=== PATIENT | male | born 1995 | race Caucasian/White ===

== ENCOUNTER 2019-03-21 13:35 | Inpatient (IN) | payer OTHER ==
[~2019-03-21] VITALS: Ht 177.8 cm; Wt 99.2 kg
[2019-03-21 13:35] VITALS: BP 142/81
[~2019-03-21 13:35] MED LIST: IBUPROFEN 600600 M1 PO; MEDROLDOSEPACK PO
[2019-03-21 14:12] LABS: HEMATOCRIT 43.3 % (42.0-52.0); HEMOGLOBIN 15.1 gm/dL (14.0-18.0); MCH 27.6 pg (26.0-34.0); MCHC 34.9 g/dL (28.0-37.0); MCV 79.2 fL (80.0-100.0); MPV 7.8 fl. (7.2-11.1); NUCLEATED RBCS 0 /100WBC; PLATELET COUNT* 214 thou/uL (150-400); RBC 5.46 mil/uL (4.50-6.00); RDW-CV 12.5 % (10.5-14.5)
[2019-03-21 14:18] LABS: CALCIUM 9.7 mg/dL (8.5-10.1); CREATININE 1.3 mg/dL (0.6-1.3); POTASSIUM 3.6 mmol/L (3.5-5.1)
[2019-03-21 14:23] LABS: ALBUMIN 3.7 g/dL (3.4-5.0); TOTAL BILIRUBIN 3.9 mg/dL (<0.1-1.0); TOTAL PROTEIN 8.4 g/dL (6.4-8.2)
[2019-03-21 14:31] LABS: BE -0.9 mmol/L (-2 to +3); PCO2 29.8 mmHg (35.0-45.0); pH 7.474 (7.340-7.450)
[2019-03-21 14:37] LABS: PO2 55.8 mmHg (75.0-100.0)
[2019-03-21 14:54] LABS: ABSOLUTE MONOCYTES 0.2 thou/uL (0.0-1.2); ABSOLUTE NEUTROPHILS 15.8 thou/uL (1.6-8.1)
[2019-03-21 14:56] LABS: LARGE PLATELETS OCCASIONAL; PLATELET ESTIMATE ADEQUATE
[2019-03-21 15:35] LABS: INFLUENZA A ANTIGEN Negative (Negative)
[2019-03-21 15:36] LABS: INFLUENZA B ANTIGEN Negative (Negative)
[2019-03-21 16:45] VITALS: BP 149/87
[2019-03-21 18:49] VITALS: BP 139/74
[2019-03-21 20:00] VITALS: BP 136/77
[2019-03-22] VITALS: BP 137/81
[2019-03-22 03:56] VITALS: BP 160/97
[2019-03-22 04:26] LABS: HEMATOCRIT 41.8 % (42.0-52.0); HEMOGLOBIN 14.1 gm/dL (14.0-18.0); MCH 27.2 pg (26.0-34.0); MCHC 33.8 g/dL (28.0-37.0); MCV 80.5 fL (80.0-100.0); MPV 7.8 fl. (7.2-11.1); RBC 5.19 mil/uL (4.50-6.00); RDW-CV 12.5 % (10.5-14.5); WBC 16.5 thou/uL (4.0-11.0)
[2019-03-22 04:40] LABS: CALCIUM 9.4 mg/dL (8.5-10.1); CREATININE 1.2 mg/dL (0.6-1.3); MAGNESIUM 2.3 mg/dL (1.8-2.4); POTASSIUM 3.5 mmol/L (3.5-5.1)
[2019-03-22 20:00] VITALS: BP 153/83
[2019-03-22 23:06] LABS: MYCOPLASMA PNEUMONIA IgG 1190 U/mL (0-99); MYCOPLASMA PNEUMONIA IgM 957 U/mL (0-769)
[2019-03-23] VITALS: BP 154/87
[2019-03-23 04:29] LABS: ABSOLUTE LYMPHOCYTES 0.7 thou/uL (0.8-5.3); ABSOLUTE MONOCYTES 0.7 thou/uL (0.0-1.2); ABSOLUTE NEUTROPHILS 17.1 thou/uL (1.6-8.1); BASOPHILS 0.1 %; HEMATOCRIT 38.4 % (42.0-52.0); HEMOGLOBIN 12.9 gm/dL (14.0-18.0); LYMPHOCYTES 3.8 %; MCH 27.1 pg (26.0-34.0); MCHC 33.6 g/dL (28.0-37.0); MCV 80.5 fL (80.0-100.0); MONOCYTES 3.6 %; MPV 7.7 fl. (7.2-11.1); NUCLEATED RBCS 0 /100WBC; PLATELET COUNT* 222 thou/uL (150-400); POLYS 92.5 %; RBC 4.77 mil/uL (4.50-6.00); WBC 18.5 thou/uL (4.0-11.0)
[2019-03-23 04:30] LABS: CALCIUM 9.1 mg/dL (8.5-10.1); MAGNESIUM 2.2 mg/dL (1.8-2.4); POTASSIUM 4.1 mmol/L (3.5-5.1)
[2019-03-23 08:45] VITALS: BP 169/82
[2019-03-23 16:00] VITALS: BP 180/79
[2019-03-23 20:00] VITALS: BP 165/89
[2019-03-24] MEDS ORDERED: PREDNISONE 20 M20 MG PO (08:01)
[2019-03-24] MEDS ORDERED: AZITHROMYCIN 2250 MG PO (08:01)
[2019-03-24] MEDS ORDERED: MUCINEX600 MG PO (08:01)
[2019-03-24 08:34] VITALS: BP 160/74
[2019-03-24 11:30] VITALS: BP 151/82
[2019-03-24 16:30] VITALS: BP 159/106
[2019-03-24 20:10] VITALS: BP 155/93
[2019-03-25] VITALS: BP 147/69
[2019-03-25 04:00] VITALS: BP 147/87
[2019-03-25 05:12] LABS: AMP/METHAMP Negative (Negative); BARBITURATES Negative (Negative); BENZODIAZEPINES Negative (Negative); COCAINE Negative (Negative); METHADONE Negative (Negative); OPIATES Negative (Negative); PCP Negative (Negative); THC POSITIVE (Negative)
[2019-03-25 07:40] VITALS: BP 150/84
[2019-03-25] MEDS ORDERED: AZITHROMYCIN 2250 MG PO (07:41)
[2019-03-25 08:49] VITALS: BP 150/84
[2019-03-25 19:44] VITALS: BP 163/93
[2019-03-26] VITALS: BP 150/86
[2019-03-26] MEDS ORDERED: PREDNISONE 10 M10 MG PO (08:07)
--- NOTE | 2019-03-26 08:34 | CON ---
[address] [address] CONSULTATION Name: LOLY JONAS Room: [address] M.R.#: [id number] Admission: 03/21/19 Attend Phys: Vidal Mo MD Discharge: Date of : 95 Report #: [id number] THIS REPORT FOR: //name// CC: [facility] physician/PCP Vidal Mo DATE OF SERVICE: 03/22/2019 Consult has been requested by Dr. Mo. INDICATION FOR CONSULTATION: Shortness of breath. HISTORY OF PRESENT ILLNESS: This is a 23-year-old gentleman. He reports that he has had some shortness of breath on exertion at his baseline. He has a history of smoking cigarettes in the past. He now does use vaporized nicotine products. The patient says that he suddenly got more sick on Monday. He has had increasing shortness of breath. He has also had a significant cough. Cough has been mostly dry at times. He has had small amounts of sputum coughed up. He has had some chest pain associated with respiration and coughing. He does not report a fever at home, but he did have some sweats and on presentation here he did have a low-grade fever of 38.2. He has had some nasal discharge and sore throat; however, these are not major complaints for him. There is no swelling of lower extremities. There is no calf pain. He has not had heartburn; however, he did say that he had significant retching as well as nausea, however, not any significant amounts of vomiting. There is no abdominal pain. He has had at least 1 or 2 loose bowel movements. REVIEW OF SYSTEMS: For 12 points are negative except as mentioned above. Since admission, the patient has been on broad spectrum antibiotics in addition to Solu-Medrol and nebulized bronchodilators. He does feel better compared with yesterday. PAST MEDICAL HISTORY: There is no history of heart or lung disease in the past except that there is some shortness of breath on exertion at his baseline, which has not been evaluated in the past. He had infectious mononucleosis as well as right little toe reattachment when he was 5 years old. SOCIAL HISTORY: He was a heavy smoker at one point. I am unable to quantify exactly for how long, he says that it was not for long. He eventually switched to vaporized nicotine products, which he still uses. There is no known history of heavy alcohol use or illegal drug use. CURRENT MEDICATIONS: [place] [address] CONSULTATION Name: LOLY JONAS Room: [address] IN [facility].#: [id number] Admission: 03/21/19 Attend Phys: Vidal Mo MD Discharge: Date of : 95 Report #: [id number] HOME MEDICATIONS: There are no home medications. ALLERGIES: No known drug allergies. PHYSICAL EXAMINATION: GENERAL: He is alert, awake and oriented, does not appear to be in any distress at this time. VITAL SIGNS: He is, however, requiring 4 liters of oxygen to maintain O2 saturation around 94-95%. He was tachycardic with a blood pressure up to 127/90s, heart rate is around 100 now. He has had a high-grade fever up to 38.2 overnight; however, this is now trending downwards. The patient's respiratory rate is mildly elevated to around 20. HEENT: Head is normocephalic and atraumatic. Pupils are equal and reactive. There is mild throat erythema. Mucous membranes are moist. NECK: Does not show raised JVP, asymmetry, mass or lymph nodes. CHEST: Symmetrical expansion on inspection and palpation. On auscultation, breath sounds are decreased and expirations are prolonged. Breath sounds are bilaterally equal. There are no added sounds. HEART: Regular. There is no murmur. ABDOMEN: Soft and nontender. EXTREMITIES: Lower extremities showed no edema and no calf tenderness. SKIN: Dry and intact. NEUROLOGICAL: Moves all extremities bilaterally equally and spontaneously. There is no focal deficit identified. LABORATORY DATA: The patient's chest x-ray is reviewed. There are increased reticular/interstitial infiltrates bilaterally. Both atypical pneumonia as well as mild pulmonary vascular congestion can lead to this picture. The patient's clinical picture is more consistent with atypical pneumonia. The patient's CBC as well as chemistries are in [facility] and these are reviewed. Coagulation studies show a D-dimer in the normal range in [facility] reviewed. Arterial blood gas consistent with acute hypoxemic respiratory failure in [facility] reviewed. ASSESSMENT AND PLAN: 1. Acute hypoxemic respiratory failure. The patient is requiring 4 liters of oxygen to maintain O2 saturation in the low 90s. Note that this is a patient who has not required oxygen in the past. The patient's clinical picture is consistent with either atypical or viral pneumonia with bronchospasm. 2. Interstitial lung infiltrates/atypical pneumonia. The patient's chest x-ray is reviewed. While mild increase in pulmonary vascular congestion can also lead to this picture, the patient's history is more consistent with either atypical or viral pneumonia. Both mycoplasma as well as legionella can lead to this picture. There are viral pneumonias, which can give an identical picture as well. At this time, I agree with continuing with atypical coverage. We can use either azithromycin or Levaquin. There [place] [address] CONSULTATION Name: LOLY JONAS Room: [address] M.R.#: [id number] Admission: 03/21/19 Attend Phys: Vidal Mo MD Discharge: Date of : 95 Report #: [id number] approaches. The patient currently is on azithromycin. I did not make any change. If kept on azithromycin then I will favor treating him with at least 500 mg for a week. Also, if azithromycin is chosen for atypical coverage then I agree with using a beta-lactam agent at the same time as well as typical organisms should still also be covered, although less likely. The patient is currently ordered Cefdinir. The patient did have mycoplasma antigens/antibody sent. I recommend following these results. Urine for legionella antigen ordered, but not collected, recommend collecting the same as well. In addition, I recommend that we go ahead and do a viral respiratory panel. 3. Bronchospasm. The patient does appear to be actively bronchospastic at this time. Agree with Solu-Medrol as well as nebulized bronchodilators as currently ordered. He has an extensive history of smoking and some shortness of breath on exertion at his baseline. This may need further evaluation, a followup chest imaging as well as pulmonary function tests later. 4. Fluid and electrolytes. The patient appears to be euvolemic at this time. I will be inclined to discontinue IV fluids soon to avoid development of fluid overload. As discussed above, theoretically, mild increase in pulmonary vascular congestion can also lead to the picture on the chest x-ray. However, considering lack of history of cardiac disease as well as the patient's young age, I feel that this is unlikely. Atypical infiltrates are the likely etiology of the findings on the patient's chest x-ray. Should he fail to improve, then in that case, I would consider an echo. I did not order one at this time. 5. Deep vein thrombosis prophylaxis. We will order Lovenox. 6. History of vaporized tobacco products use. Recommend discontinue. Thanks for this consultation. <ELECTRONICALLY SIGNED> By: Jerel Greene MD 03/26/19 [id number] Saleh MD /nt
[2019-03-26 08:43] LABS: BE -0.1 mmol/L (-2 to +3); PCO2 27.8 mmHg (35.0-45.0); PO2 81.7 mmHg (75.0-100.0); pH 7.506 (7.340-7.450)
[2019-03-26 10:02] VITALS: BP 127/55
[2019-03-26 10:08] VITALS: BP 127/55
[2019-03-26 11:30] VITALS: BP 127/55
[2019-03-26 12:16] VITALS: BP 127/55
[2019-03-26 22:07] LABS: ADENOVIRUS Negative (Negative); INFLUENZA A Negative (Negative); INFLUENZA B Negative (Negative); METAPNEUMOVIRUS Negative (Negative); PARAINFLUENZA 1 Negative (Negative); PARAINFLUENZA 2 Negative (Negative); PARAINFLUENZA 3 Negative (Negative); RHINOVIRUS Negative (Negative); RSV A Negative (Negative); RSV B Negative (Negative)
== END 2019-03-26 12:18 | disposition home or self-care (01) | DRG 871 ==
LOC: M.ERS 13:35 → M.ORTHSURG 15:05 → M.2W 15:05 → M.TBA-ER 15:05 → M.2W 16:55 → M.ORTHSURG 03-22 17:15
PROVIDERS: Internal Medicine; Internal Medicine Critical Care Medicine; Personal Emergency Response Attendant; ADMIT Internal Medicine
DX: A41.9 Sepsis, unspecified organism (principal); J96.01 Acute respiratory failure with hypoxia; J15.7 Pneumonia due to Mycoplasma pneumoniae; E87.1 Hypo-osmolality and hyponatremia; J68.0 Bronchitis and pneumonitis due to chemicals, gases, fumes and vapors; T65.221A Toxic effect of tobacco cigarettes, accidental (unintentional), initial encounter; F17.210 Nicotine dependence, cigarettes, uncomplicated; Z79.899 Other long term (current) drug therapy; Y92.89 Other specified places as the place of occurrence of the external cause